=== PATIENT | female | born 1995 | race Hispanic/Latino ===

== ENCOUNTER → 2020-06-07 | Outpatient (CLI) | payer BC, SELFPAY ==
[2020-06-07 11:49] LABS: hCG Titer Quant., Serum < 1 mIU/mL (1-3)
[2020-06-07 11:58] LABS: Cholesterol 180 mg/dL (200); Estradiol 60.4 pg/mL; Follicle Stimulating Hormone 3.7 mIU/mL; High Density Lipoprotein 68 mg/dL; Luteinizing Hormone 10.6 mIU/mL; Prolactin 5.4 ng/mL; T4 Free Direct 0.97 ng/dL (0.76-1.46); Triglycerides 111 mg/dL; Very Low Density Lipoprotein 22 mg/dL (5-40)
[2020-06-07 12:16] LABS: Hemoglobin A1c 5.5 % (3.8-5.6)
[2020-06-08 20:37] LABS: Testosterone Free 6.7 pg/mL (0.0-4.2)
[2020-06-09 05:07] LABS: Chlamydia By Nucleic Acid AMP Negative (Negative)
[2020-06-09 05:39] LABS: Gonococcus By Nucleic Acid AMP Negative (Negative)
[2020-06-09 22:01] LABS: HPV Reflexed? NOT INDICATED
== END | disposition home or self-care (01) ==
LOC: WOBLAB 09:55
PROVIDERS: Visit Provider Obstetrics & Gynecology
DX: N92.6 Irregular menstruation, unspecified (principal); Z12.4 Encounter for screening for malignant neoplasm of cervix; Z11.3 Encounter for screening for infections with a predominantly sexual mode of transmission
CPT/HCPCS: 36415; 80061; 82670; 83001; 83002; 83036; 84146; 84402; 84439; 84443; 84702; 87491; 87591; 88175; G0145